=== PATIENT | male | born 2005 | race Caucasian/White ===

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

== ENCOUNTER 2024-09-19 12:04 | Emergency (ER) | payer OTHER ==
[~2024-09-19] VITALS: Ht 167.6 cm; Wt 58.0 kg
[2024-09-19 12:18] VITALS: O2SAT 98
[2024-09-19] MEDS ORDERED: BENZ200C52 MT (12:33)
[2024-09-19] MEDS ORDERED: ACET-3800 MT (12:33)
[2024-09-19 12:38] VITALS: BP 110/70; PULSE 85; RESP 18; TEMP 37; O2SAT 98
== END 2024-09-19 13:14 | disposition home or self-care (01) ==
LOC: ER 12:04
DX: J02.9 Acute pharyngitis, unspecified (principal)
CPT/HCPCS: 87070; 87430; 99283

== ENCOUNTER 2025-06-16 06:12 | Emergency (ER) | payer OTHER ==
[~2025-06-16] VITALS: Ht 170.2 cm; Wt 62.0 kg
[~2025-06-16 06:12] MED LIST: ACET-3800 MT; BENZ200C52 MT
[2025-06-16 06:18] VITALS: TEMP 37; O2SAT 100
[2025-06-16 06:22] VITALS: TEMP 98.60
[2025-06-16] MEDS: IBUPROFEN 600MG TABLET PO ONE (06:54)
[2025-06-16 07:03] VITALS: BP 113/73; PULSE 97; RESP 18; O2SAT 99
[2025-06-16 07:59] LABS: INFLUENZA TYPE A Presumptive Negative (Pres. Neg.); INFLUENZA TYPE B Presumptive Negative (Pres. Neg.)
== END 2025-06-16 07:05 | disposition home or self-care (01) ==
LOC: ER 06:12
DX: B34.9 Viral infection, unspecified (principal); J45.909 Unspecified asthma, uncomplicated; M54.50 Low back pain, unspecified; R51.9 Headache, unspecified; R05.9 Cough, unspecified; Z20.822 Contact with and (suspected) exposure to COVID-19
CPT/HCPCS: 87426; 87804; 99283